=== PATIENT | male | born 1975 ===

== ENCOUNTER 2022-03-27 01:23 | Emergency (ER) | payer SELFPAY ==
[2022-03-27 01:46] VITALS: BP 134/76
[2022-03-27 01:56] LABS: Bilirubin,Urine NEG (Negative); Blood,Urine NEG (Negative); Color,Urine Yellow (Yellow); Urobilinogen,Urine < 2.0 mg/dL (<2.0)
[2022-03-27 02:17] LABS: Mucus,Urine 3+ /HPF
[2022-03-27 02:30] LABS: Basophils % (Auto) 0.3 % (0.0-1.8); Hematocrit 45.6 % (35.5-45.6); Hemoglobin 15.6 gm/dl (11.8-15.2); Lymphocytes # (Auto) 1.4 K/mm3 (1.2-5.4); Lymphocytes % (Auto) 9.8 % (13.4-35.0); Mean Corpuscular HGB Conc 34 % (32-34); Mean Corpuscular Volume 85 fl (84-94); Monocytes # (Auto) 0.4 K/mm3 (0.0-0.8); Platelet Count 361 K/mm3 (140-440); Red Blood Count 5.36 M/mm3 (3.65-5.03); Red Cell Distribution Width 13.8 % (13.2-15.2)
[2022-03-27 02:53] LABS: Alanine Aminotransferase 58 units/L (7-56); Albumin 5.5 g/dL (3.9-5); BUN/Creatinine Ratio 11; Blood Urea Nitrogen 9 mg/dL (9-20); Calcium 10.4 mg/dL (8.4-10.2); Hemolysis Index 4
== END 2022-03-27 15:33 | disposition left against medical advice (07) ==
LOC: ED 01:23
DX: R10.9 Unspecified abdominal pain (principal); Z53.21 Procedure and treatment not carried out due to patient leaving prior to being seen by health care provider
CPT/HCPCS: 36415; 80053; 81001; 85025

== ENCOUNTER 2022-03-27 11:23 | Emergency (ER) | payer SELFPAY ==
[2022-03-27 11:46] VITALS: BP 138/90
--- NOTE | 2022-03-27 12:37 | Event Note ---
Date: 03/27/22 I was asked and consulted by the triage nurse about this patient who was sent by PCP to be evaluated for possible hernia with her abdominal pain-- Pt have had routine CBC and CMP that was less than 24 hours so this will not be ordered at this point.
== END 2022-03-28 05:49 | disposition left against medical advice (07) ==
LOC: ED 11:23
DX: R10.9 Unspecified abdominal pain (principal); Z53.21 Procedure and treatment not carried out due to patient leaving prior to being seen by health care provider